=== PATIENT | male | born 1955 | race Caucasian/White ===

== ENCOUNTER 2020-07-29 07:51 | Emergency (ER) | payer BC ==
[~2020-07-29] VITALS: Ht 182.8 cm; Wt 99.8 kg
[2020-07-29] MEDS ORDERED: MIRALAX17 GM PO (10:18)
== END 2020-07-29 10:21 | disposition home or self-care (01) ==
LOC: ED 07:51
DX: K56.41 Fecal impaction (principal); I10 Essential (primary) hypertension; E11.9 Type 2 diabetes mellitus without complications; E78.5 Hyperlipidemia, unspecified; Z88.0 Allergy status to penicillin; Z87.891 Personal history of nicotine dependence